=== PATIENT | male | born 1960 | race Caucasian/White ===

== ENCOUNTER 2017-04-30 10:47 | Emergency (ER) | payer OTHER ==
[2017-04-30 10:57] VITALS: RESP 14; O2SAT 95
--- NOTE | 2017-04-30 11:18 | EDPHY ---
H & P Stated Complaint: Left ankle, right 5th finger pain. Fell while hiking. Time Seen by Provider: 04/30/17 11:17 - Personal History Current Tetanus/Diphtheria Vaccine: Yes Current Tetanus Diphtheria and Acellular Pertussis (TDAP): Yes - Medical/Surgical History Hx Asthma: No Hx Chronic Respiratory Disease: No Hx Diabetes: No Hx Cardiac Disease: No Hx Renal Disease: No Hx Cirrhosis: No Hx Alcoholism: No Hx HIV/AIDS: No Hx Splenectomy or Spleen Trauma: No Other PMH: Gout - Social History Smoking Status: Never smoked Constitutional: Initial Vital Signs Temperature (C) 36.4 C 04/30/17 10:53 Heart Rate 76 04/30/17 10:53 Respiratory Rate 14 04/30/17 10:53 Blood Pressure 120/90 H 04/30/17 10:53 O2 Sat (%) 95 04/30/17 10:53 Allergies/Adverse Reactions: Penicillins Allergy (Verified 04/30/17 10:50) Home Medications: Medication Instructions Recorded Indocin 04/30/17 oxyCODONE IR [Oxycodone Ir (*)] 5 - 10 mg PO Q6 PRN #20 tab 04/30/17 Medical Decision Making - Diagnostics Imaging Results: Imaging Impressions Ankle X-Ray 04/30/17 10:59 Impression: Ankle sprain.. 2. Right Fifth Finger Clinical Indications: Pain and swelling, fall hiking Findings: Is an acute vertically oriented intra-articular fracture undercutting the head of the proximal phalanx of the fifth finger. The fracture enters the mid articular surface which is not significantly distracted. The DIP joint remains normally aligned. The finger is swollen. Overall mineralization is normal. Impression: Intra-articular fracture of the head of the proximal phalanx. Finger X-Ray 04/30/17 10:59 Impression: Ankle sprain.. 2. Right Fifth Finger Clinical Indications: Pain and swelling, fall hiking Findings: Is an acute vertically oriented intra-articular fracture undercutting the head of the proximal phalanx of the fifth finger. The fracture enters the mid articular surface which is not significantly distracted. The DIP joint remains normally aligned. The finger is swollen. Overall mineralization is normal. Impression: Intra-articular fracture of the head of the proximal phalanx. Imaging: I viewed and interpreted images myself ED Course/Re-evaluation: CHIEF COMPLAINT: Ankle and finger injuries HISTORY OF PRESENT ILLNESS: The patient is a 57 y/o male arriving with his complaining of left ankle pain secondary to a fall while hiking this morning. He stumbled coming down the trail and describes an inversion left ankle injury and landed on his right hand. He had immediate right 5th finger and ankle pain and dramatic swelling around his ankle. He was able to hobbled about 100 yards to the trailhead with assistance. He denies other injuries. He denies pertinent medical history. REVIEW OF SYSTEMS: A 10 point review of systems was performed and is negative with the exception of the elements mentioned in the history of present illness. PHYSICAL EXAM: HR, BP, O2 Sat, RR. Temp noted General Appearance: Alert, well hydrated, appropriate, and non-toxic appearing. Head: Atraumatic without scalp tenderness or obvious injury Eyes: Pupils equal, round, reactive to light and accommodation, EOMI, no trauma , no injection. Nose: Atraumatic, no rhinorrhea, clear. Throat: There is no erythema or exudates, no lesions, normal tonsils, mucus membranes moist. Neck: Supple, nontender. Respiratory: No retractions, no distress, no wheezes, and no accessory muscle use. Lungs are clear to auscultation bilaterally. Cardiovascular: Regular rate and rhythm, no murmurs, rubs, or gallops. Left dorsalis pedis pulse intact. Good capillary refill all extremities. Gastrointestinal: Abdomen is soft, nontender, non-distended, no masses, no rebound, no guarding, no peritoneal signs. Musculoskeletal: Tenderness and swelling over left lateral malleolus, joint is stable and ROM intact. Swelling and tenderness over proximal right 5th phalanx. Other extremities have normal active ROM, atraumatic. Neurological: Alert, appropriate, and interactive. Nonfocal neuro exam. Skin: No rashes, good turgor, no nodules on palpation. Past medical history: Denies Past surgical history: right ankle surgery Family history: noncontributory Social history: at bedside DIAGNOSTICS/PROCEDURES/CRITICAL CARE TIME: Finger x-ray: 5th phalanx fracture Left ankle x-ray: likely sprain DIFFERENTIAL DIAGNOSIS: The differential diagnosis for the patient's injuries included but was not limited to phalanx fracture, possible distal fibula fracture, ligamentous injury, contusion, muscular strain. MEDICAL DECISION MAKING: This is a healthy 57 y/o male presenting with right 5th finger tenderness and swelling and left ankle tenderness and swelling after falling while hiking this morning. He is neurovascularly intact. Skin is intact over site of injury and nearby joints are stable. 2 tabs PO Percocet administered for pain. X-rays reveal a proximal 5th phalanx fracture and likely ankle sprain. He will be discharged in a splint with standard sprain and fracture care instructions and OxyIR script if needed for pain. Referral to hand surgery and orthopedist for follow up. Return precautions given. He is comfortable with this plan. - Data Points Medications Given: Discontinued Medications Oxycodone/Acetaminophen (Percocet 5/325) 2 tab PO EDNOW ONE Stop: 04/30/17 11:43 Last Admin: 04/30/17 11:44 Dose: 2 tab Departure - Departure Disposition: Home, Routine, Self-Care Clinical Impression: possible distal fibula fracture, left Phalanx, proximal fracture of finger Qualifiers: Encounter type: initial encounter Finger: little finger Fracture type: closed Fracture alignment: nondisplaced Laterality: right Qualified Code(s): S62.646A - Nondisplaced fracture of proximal phalanx of right little finger, initial encounter for closed fracture Ankle sprain Qualifiers: Encounter type: initial encounter Involved ligament of ankle: other ligament Laterality: left Qualified Code(s): S93.492A - Sprain of other ligament of left ankle, initial encounter Condition: Good Instructions: Ankle Sprain (ED), Finger Fracture (ED) Additional Instructions: 1. Apply ice to sore areas. Expect to feel increased soreness over the next 1-2 days. 2. Use 800mg ibuprofen every 6-8 hours for pain and swelling for the next few days. 3. Use OxyIR as prescribed for severe pain. 4. Keep splint in place until follow up with orthopedist. 5. Follow up within one week. You've been referred to Dr. Kahn, hand surgeon, and Dr. Espinal, orthopedist. 6. Return to the ED for severe pain, weakness or numbness in your foot or finger tip, or other worsening of condition. Referrals: Matthew Shields MD [Primary Care Provider] - As per Instructions Kolby Espinal MD [Medical Doctor] - As per Instructions Yoan Kahn MD [Medical Doctor] - As per Instructions Prescriptions: oxyCODONE IR [Oxycodone Ir (*)] 5 - 10 mg PO Q6 PRN #20 tab PRN Reason: Pain, Severe Report Scribed for: Cristiano Munoz Report Scribed by: Ashanti Lugo Date of Report: 04/30/17 Time of Report: 11:40
[2017-04-30] MEDS ORDERED: OXYCODONE/APAP 5/325 TAB ONE (11:38)
[2017-04-30] MEDS ORDERED: OXYCODONE/APAP 5/325 TAB PO ONE (11:42)
[2017-04-30 12:08] VITALS: PULSE 74
[2017-04-30 12:09] VITALS: BP 118/80; TEMP 97.9
== END 2017-04-30 12:09 | disposition home or self-care (01) ==
DX: S62.646A Nondisplaced fracture of proximal phalanx of right little finger, initial encounter for closed fracture (principal); S93.492A Sprain of other ligament of left ankle, initial encounter; W01.0XXA Fall on same level from slipping, tripping and stumbling without subsequent striking against object, initial encounter; Y93.01 Activity, walking, marching and hiking
CPT/HCPCS: L3925; L4350